=== PATIENT | female | born 1975 | race Caucasian/White ===

== ENCOUNTER 2020-04-25 17:09 | Outpatient (CLI) | payer OTHER, SELFPAY ==
--- NOTE | ~2020-04-25 | MM_ITS ---
EXAMINATION: MM screening demetri BI w je HISTORY: Screening mammogram TECHNIQUE: Craniocaudal and mediolateral oblique 3-D tomosynthesis images were obtained and synthetic 2-D images were generated. CAD analysis was submitted and interpreted. COMPARISON: 12/05/2017 bilateral digital screening mammogram BREAST PARENCHYMAL COMPOSITION: There are scattered areas of fibroglandular density. FINDINGS: There is no evidence of suspicious mass, calcification, or architectural distortion to sugg est malignancy in either breast. There has been no suspicious interval change. IMPRESSION: 1. No mammographic evidence of malignancy. 2. Recommend routine screening mammography in one year. BI-RADS Category 1: Negative Reviewed, dictated and finalized at location A.
== END 2020-04-25 17:10 | disposition home or self-care (01) ==
LOC: ANHIMG 17:13
PROVIDERS: Visit Provider Obstetrics & Gynecology
DX: Z12.31 Encounter for screening mammogram for malignant neoplasm of breast (principal)
CPT/HCPCS: 77063; 77067

== ENCOUNTER 2020-06-08 10:52 | Outpatient (CLI) | payer OTHER, SELFPAY ==
--- NOTE | ~2020-06-08 | XR_ITS ---
EXAMINATION: XR cervical spine 4-5V DATE: 06/08/2020 11:26 INDICATION: Neck pain. TECHNIQUE: 4 views of cervical spine were obtained. COMPARISON: None. FINDINGS: There is 6 degrees levocurvature of cervical spine. Vertebral body heights and intervertebr al disc heights are normal. The facet joints are unremarkable. No central canal stenosis or preverteb ral soft tissue swelling. IMPRESSION: 1. Cervical levocurvature. Reviewed, dictated and finalized at location A. IMPRESSION: 1. Cervical levocurvature.
--- NOTE | ~2020-06-08 | XR_ITS ---
EXAMINATION: XR lumbar spine 2-3V DATE: 06/08/2020 11:26 INDICATION: Low back pain. TECHNIQUE: 3 views of lumbar spine were obtained. COMPARISON: None. FINDINGS: There is 3 degrees dextrocurvature of lumbar spine. Vertebral body heights and intervertebr al disc heights are normal. There are endplate osteophytes at L1-L2 and L2-L3. The facet joints are u nremarkable. IMPRESSION: 1. Mild lumbar spondylosis. Reviewed, dictated and finalized at location A. IMPRESSION: 1. Mild lumbar spondylosis.
--- NOTE | ~2020-06-08 | XR_ITS ---
EXAMINATION: XR thoracic spine 3V DATE: 06/08/2020 11:26 INDICATION: Thoracic back pain. TECHNIQUE: 3 views of thoracic spine were obtained. COMPARISON: Chest 2 views 05/06/2019 FINDINGS: There is 4 degrees dextrocurvature of thoracic spine. Vertebral body heights are normal. Th ere are endplate osteophytes at most levels. There is mildly decreased disc height at multiple levels in mid thoracic spine. IMPRESSION: 1. Mild thoracic spondylosis. Reviewed, dictated and finalized at location A.
== END 2020-06-08 10:53 | disposition home or self-care (01) ==
PROVIDERS: PCP Physician Assistant; Visit Provider Physician Assistant
DX: M54.2 Cervicalgia (principal); M47.894 Other spondylosis, thoracic region; M47.896 Other spondylosis, lumbar region
CPT/HCPCS: 72050; 72072; 72100

== ENCOUNTER 2020-07-20 10:11 | Outpatient (CLI) | payer OTHER, SELFPAY ==
--- NOTE | ~2020-07-20 | US_ITS ---
EXAMINATION: US soft tissue head and neck DATE: 07/20/2020 10:51 INDICATION: Submandibular lymphadenopathy. TECHNIQUE: Multiple grayscale and Doppler ultrasound images of the neck were obtained. COMPARISON: None FINDINGS: There is no abnormal mass or lymphadenopathy in the patient's areas of concern. The submand ibular glands are normal. Right thyroid lobe is absent. In the left thyroid lobe, there is a 6 mm abiola id, isoechoic, [id number] nodule with ill-defined margin without echogenic foci (TI-RADS TR3), l ikely not clinically significant and needing no follow-up. IMPRESSION: 1. No lymphadenopathy. Reviewed, dictated and finalized at location B. RMINATOR TERMITE IMPRESSION: 1. No lymphadenopathy.
== END 2020-07-20 10:12 | disposition home or self-care (01) ==
PROVIDERS: PCP Physician Assistant; Visit Provider Physician Assistant
DX: R59.0 Localized enlarged lymph nodes (principal)
CPT/HCPCS: 76536

== ENCOUNTER 2021-06-13 17:39 | Emergency (ER) | payer OTHER, SELFPAY ==
[2021-06-13 17:47] VITALS: BP 111/68; PULSE 68; RESP 16; TEMP 36; O2SAT 98
--- NOTE | 2021-06-13 17:49 | ED.LOWEXIN ---
HPI - Extremity Injury (Lower) General Chief Complaint: Extremity Injury, Lower Stated Complaint: right foot injury Source: patient and RN notes reviewed Mode of arrival: ambulatory Limitations: no limitations History of Present Illness HPI Narrative: Tana 45-year-old female patient ambulated into the [facility]. Patient states she stepped on a rajan tack on 06/11/2021. Patient states that the tach entered below her third and fourth toe on her right foot. Patient states increased right redness swelling for the last day. Patient states she is been soaking it in Epson salts and putting Neosporin on it at home. Related Data Home Medications Medication Instructions Recorded Confirmed albuterol sulfate 2 inh INHALATION DIRECTED 06/13/21 06/13/21 budesonide-formoterol [Symbicort] 1 inh INHALATION DAILY 06/13/21 06/13/21 cetirizine 10 mg PO DAILY 06/13/21 06/13/21 duloxetine 60 mg PO DAILY 06/13/21 06/13/21 fluticasone propionate 50 mcg INTRANASAL DIRECTED 06/13/21 06/13/21 hydroxychloroquine 200 mg PO DAILY 06/13/21 06/13/21 Allergies Allergy/AdvReac Type Severity Reaction Status Date / Time No Known Allergies Allergy Unverified 06/13/21 17:44 Review of Systems Review of Systems: CONSTITUTIONAL: Denies body aches, fever, chills, or sweats. EYES: Denies visual changes, redness, or discharge. ENT: Denies rhinorrhea, congestion, sore throat, or otalgia. CARDIOVASCULAR: Denies chest pain, palpitations, or edema. RESPIRATORY: Denies cough or dyspnea. GASTROINTESTINAL: Denies abdominal pain, nausea, vomiting, or diarrhea. GENITOURINARY: Denies dysuria or hematuria. SKIN: Denies rash, itching, + right foot wound MUSCULOSKELETAL: Denies back pain, joint pain, or myalgia. NEUROLOGIC: Denies headache, numbness, tingling, or weakness. PSYCH: Denies depression or anxiety. All systems reviewed & are unremarkable except as noted in HPI and below [facility] Comments At time of signature, I have reviewed and agree with nursing past medical, surgical, social and family history unless otherwise noted. Please see nursing chart for further information. There is no relevant family history pertinent to the presenting complaint Exam Narrative: GENERAL: Well-appearing, well-nourished, and in no acute distress. HEAD: Normocephalic, atraumatic. EYES: EOMI. No redness or drainage. Conjunctivae normal. ENT: Mucous membranes pink and moist. Nares clear. No rhinorrhea. NECK: Normal AROM. Supple. CHEST: No respiratory distress. MUSCULOSKELETAL: No bony tenderness. EXTREMITIES: Normal range of motion. No edema. right foot posterior below 3 and 4th toe erythemic,moderate edema,pinpoint entry noted. neurovascular exam intact. distal movement and sensation intact. SKIN: Warm, dry, no rash. Capillary refill normal. Normal skin turgor. NEURO: No focal deficits. Alert and oriented x3. Gait steady. PSYCH: Normal affect. No signs of depression or anxiety. Course Vital Signs Vital signs: Vital Signs Temperature 36.0 C L 06/13/21 17:47 Pulse Rate 68 06/13/21 17:47 Respiratory Rate 16 06/13/21 17:47 Blood Pressure 111/68 06/13/21 17:47 Pulse Oximetry 98 06/13/21 17:47 Temperature 36.0 C L 06/13/21 17:47 Pulse Rate 68 06/13/21 17:47 Respiratory Rate 16 06/13/21 17:47 Blood Pressure 111/68 06/13/21 17:47 Pulse Oximetry 98 06/13/21 17:47 Reviewed MDM - Extremity Injury (Lower) MDM Narrative Medical decision making narrative: Patient has a puncture wound to the right foot. Patient has cellulitis surrounding the area. Patient was put on Bactrim and ibuprofen. Patient was instructed to follow-up in 3 to 4 days with her primary care physician patient was instructed to go to the ER immediately for increased redness, swelling, or red streaking. Patient instructed to keep the area clean and dry elevate at rest patient was instructed to clean the area twice daily with mild soap and water Diff
[2021-06-13] MEDS: TETANUS,DIPHTHERIA,AC PERTUSSIS ADULT (0.5 ML) BOOSTRIX IM (17:58)
== END 2021-06-13 18:15 | disposition home or self-care (01) ==
PROVIDERS: Emergency Provider Nurse Practitioner Family; PCP Physician Assistant
DX: L03.115 Cellulitis of right lower limb (principal); Z23 Encounter for immunization; J44.9 Chronic obstructive pulmonary disease, unspecified; K21.9 Gastro-esophageal reflux disease without esophagitis; M19.90 Unspecified osteoarthritis, unspecified site; M79.7 Fibromyalgia; M06.9 Rheumatoid arthritis, unspecified
CPT/HCPCS: 90471; 90715; 99213; G0463

== ENCOUNTER 2021-07-19 07:23 | Outpatient (CLI) | payer OTHER, SELFPAY ==
--- NOTE | 2021-07-19 | ECHO_ITS ---
Patient Info Name: Tana Sanchez Age: 45 years : 1975 Gender: Female Ht: 69 in Wt: 215 lbs BSA: 2.21 m2 HR: 53 bpm BP: 106 / 70 mmHg Heart Rhythm: Sinus Rhythm Exam Date: 07/19/2021 8:13 AM Exam Location: [facility] Patient Status: Outpatient Admit Date: 07/19/2021 Staff Ordering Physician: Tong, Nia GONZALES Cradle Slide Maker: Sara Keller RDCS Attending Provider: Tong, Nia GONZALES Referring Physician: Tong CONLEY; Exam Type: CA echo doppler color flow Study Info Indications R06.00 - Dyspnea, unspecified Complete two-dimensional, color flow and Doppler transthoracic echocardiogram is performed. Summary 1. Complete two-dimensional, color flow and Doppler transthoracic echocardiogram is performed. 2. Left ventricular chamber dimension is normal. 3. Left ventricular systolic function is normal, estimated at 55-60%. 4. The left ventricular diastolic function is normal. 5. E/e' 9 is minimally elevated. 6. There is trace aortic valve regurgitation. 7. There is trace mitral valve regurgitation. Left Ventricle E/e' 9 is minimally elevated. Left ventricular chamber dimension is normal. Left ventricular systolic function is normal, estimated at 55-60%. The left ventricular diastolic function is normal. Right Ventricle Right ventricular systolic function is mulu and with normal TAPSE 2.1 cml. Right ventricular chamber dimension is normal. Left Atria Left atrial chamber dimension is normal. Right Atria Right atrial chamber dimension is normal. Aortic Valve The aortic valve is trileaflet. There is no aortic valve stenosis. There is trace aortic valve regurgitation. Pulmonic Valve There is no pulmonic regurgitation. Mitral Valve There is no mitral valve stenosis. There is trace mitral valve regurgitation. Tricuspid Valve There is no tricuspid valve regurgitation. Pericardium/Pleural There is no pericardial effusion. Inferior Vena Cava Normal inferior vena cava with >50% collapse upon inspiration consistent with normal right atrial pressure, 5 mmHg. Aorta The aortic root size at the sinus of Valsalva is normal. Left Ventricular Outflow Tract Name Value Normal LVOT 2D LVOT Diameter 2.2 cm LVOT Doppler LVOT Peak Gradient 2 mmHg LVOT Mean Gradient 1 mmHg LVOT VTI 17 cm LVOT VTI/AV VTI Ratio 0.6 LVOT Stroke Volume 68 ml LVOT CO 2.7 l/min LVOT CI 1.2 l/min/m2 Pulmonic Valve Name Value Normal RVOT Doppler RVOT Peak Gradient 1 mmHg PV Doppler PV Peak Gradient 2 mmHg
--- NOTE | 2021-07-19 12:04 | WPDPFTINT ---
PFT Procedure Performed PFT Procedure Performed Spirometry with Pre/Post Bronchodilator Plethysmography (Lung Vol) Diffusing Cap (DLCO) Flow Vol Loop PFT Interpretation Lung volumes were measured with the body plethysmography method. Lung volumes are unremarkable. Spirometry showed normal expiratory flow rates and a mild reduction in the FEV1 to FVC ratio at 64%. No post bronchodilator study was carried out. Lung diffusion capacity is within the normal range. The flow volume loop is suggestive of possible suboptimal effort. It is unclear whether the diminished FEV1 to FVC ratio in the face of normal expiratory flow rates is related to suboptimal effort or to the disproportionately greater FVC in relation to FEV1. Consider repeating the study with post- bronchodilator measurements if underlying obstructive airway disease is suspected. Impression: Lung volumes and lung diffusion capacity within normal range. Likely normal spirometry as well.
== END 2021-07-19 07:24 | disposition home or self-care (01) ==
PROVIDERS: PCP Physician Assistant; Visit Provider Physician Assistant
DX: J44.9 Chronic obstructive pulmonary disease, unspecified (principal); R06.00 Dyspnea, unspecified
CPT/HCPCS: 93306; 94375; 94726; 94729

== ENCOUNTER 2021-10-25 08:34 | Outpatient (CLI) | payer OTHER, SELFPAY ==
--- NOTE | 2021-10-25 11:00 | NEURO_ITS ---
Impression: # Complains of numbness and weakness. # Right ulnar neuropathy across the elbow. # No Carpal Tunnel Syndrome. # Normal needle/EMG exam. # Clinical correlation recommended. Nerve Conduction Studies Anti Sensory Summary Table Stim Site NR Peak (ms) P-T Amp (?V) Site1 Site2 Delta-P (ms) Dist (cm) Андрей (m/s) Left Median Anti Sensory (2-3nd Digit) Wrist 2.8 67.7 Wrist 2-3nd Digit 2.8 14.0 50 Wrist 2.8 88.2 Wrist 2-3nd Digit 2.8 14.0 50 Right Median Anti Sensory (2-3nd Digit) Wrist 3.1 45.6 Wrist 2-3nd Digit 3.1 14.0 45 Wrist 3.0 62.7 Wrist 2-3nd Digit 3.1 14.0 45 Left Radial Anti Sensory (Base 1st Digit) Wrist 2.1 26.4 Wrist Base 1st Digit 2.1 0.0 Right Radial Anti Sensory (Base 1st Digit) Wrist 2.6 15.9 Wrist Base 1st Digit 2.6 0.0 Left Ulnar Anti Sensory (5th Digit) Wrist 2.5 65.6 Wrist 5th Digit 2.5 14.0 56 Right Ulnar Anti Sensory (5th Digit) Wrist 2.4 35.3 Wrist 5th Digit 2.4 14.0 58 Motor Summary Table Stim Site NR Onset (ms) O-P Amp (mV) Site1 Site2 Delta-0 (ms) Dist (cm) Андрей (m/s) Left Median Motor (Abd Poll Brev) Wrist 3.2 2.0 Elbow Wrist 4.3 26.0 60 Elbow 7.5 3.3 Right Median Motor (Abd Poll Brev) Wrist 3.3 5.5 Elbow Wrist 4.6 27.0 59 Elbow 7.9 5.4 Left Ulnar Motor (Abd Dig Minimi) Wrist 2.7 7.5 A Elbow Wrist 5.0 29.0 58 A Elbow 7.7 6.4 Right Ulnar Motor (Abd Dig Minimi) Wrist 2.4 6.3 A Elbow Wrist 5.4 28.0 52 A Elbow 7.8 5.2 B Elbow Wrist 3.3 20.0 61 B Elbow 5.7 4.5 F Wave Studies NR F-Lat (ms) L-R F-Lat (ms) Left Median (Mrkrs) (Abd Poll Brev) 28.07 0.53 Right Median (Mrkrs) (Abd Poll Brev) 28.60 0.53 Left Ulnar (Mrkrs) (Abd Dig Min) 28.62 0.38 Right Ulnar (Mrkrs) (Abd Dig Min) 28.25 0.38 EMG Side Muscle Nerve Root Ins Act Fibs Amp Dur Recrt Comment Right 1stDorInt Ulnar C8-T1 Nml Nml Nml Nml Nml Right Ext Indicis Radial (Post Int) C7-8 Nml Nml Nml Nml Nml Right Ext Digitorum Radial (Post Int) C7-8 Nml Nml Nml Nml Nml Right BrachioRad Radial C5-6 Nml Nml Nml Nml Nml Right PronatorTeres Median C6-7 Nml Nml Nml Nml Nml Right Abd Poll Brev Median C8-T1 Nml Nml Nml Nml Nml Left 1stDorInt Ulnar C8-T1 Nml Nml Nml Nml Nml Left Ext Indicis Radial (Post Int) C7-8 Nml Nml Nml Nml Nml Left Ext Digitorum Radial (Post Int) C7-8 Nml Nml Nml Nml Nml Left BrachioRad Radial C5-6 Nml Nml Nml Nml Nml Left PronatorTeres Median C6-7 Nml Nml Nml Nml Nml Left Abd Poll Brev Median C8-T1 Nml Nml Nml Nml Nml Right ABD Dig Min Ulnar C8-T1 Nml Nml Nml Nml Nml Right Abd Poll Long Radial (Post Int) C7-8 Nml Nml Nml Nml Nml Left ABD Dig Min Ulnar C8-T1 Nml Nml Nml Nml Nml Left Abd Poll Long Radial (Post Int) C7-8 Nml Nml Nml Nml Nml MTDD
== END 2021-10-25 08:35 | disposition home or self-care (01) ==
LOC: ANHNEURO 08:34
PROVIDERS: PCP Physician Assistant; Visit Provider Physician Assistant
DX: R29.898 Other symptoms and signs involving the musculoskeletal system (principal); G56.21 Lesion of ulnar nerve, right upper limb
CPT/HCPCS: 95886; 95911

== ENCOUNTER 2021-11-19 14:02 | Outpatient (CLI) | payer OTHER, SELFPAY ==
--- NOTE | ~2021-11-19 | XR_ITS ---
EXAMINATION: XR mandible min 4V INDICATION: Right jaw pain TECHNIQUE: Four views of the mandible are obtained. COMPARISON: 05/15/2004 FINDINGS: Bone alignment is normal. There is no fracture. The paranasal sinuses appear well-aerated. The soft tissues are unremarkable. IMPRESSION: 1. No acute osseous abnormality of the mandible identified. If there is high clinical suspicion for m andibular abnormality, facial bone CT would be recommended. Reviewed, dictated and finalized at location A. IMPRESSION: 1. No acute osseous abnormality of the mandible identified. If there is high cl inical suspicion for mandibular abnormality, facial bone CT would be recommende dAmauri
== END 2021-11-19 14:03 | disposition home or self-care (01) ==
PROVIDERS: PCP Physician Assistant; Visit Provider Physician Assistant
DX: R68.84 Jaw pain (principal); E04.1 Nontoxic single thyroid nodule
CPT/HCPCS: 70110

== ENCOUNTER 2021-11-22 15:53 | Outpatient (CLI) | payer OTHER, SELFPAY ==
--- NOTE | ~2021-11-22 | US_ITS ---
EXAMINATION: US thyroid EXAM DATE: 11/22/2021 17:23 INDICATION: Single known toxic thyroid nodule. TECHNIQUE: Multiple grayscale and Doppler images of the thyroid were obtained (by a technologist who performed the scan) and subsequently reviewed. Individual nodules and recommendations may be reporte d in accordance with TI-RADS system as designated by the 2017 ACR White Paper TI-RADS committee. Comp micky is made to prior examination from 07/20/2020. FINDINGS: Right thyroid lobe appears to be atrophic measuring 1.0 x 0.4 x 1.0 cm, with a 3 mm cyst in side. The left thyroid lobe nodule measures 4.8 x 1.7 x 2.2 cm. The left thyroid lobe nodule has relatively ho mogeneous thyroid echogenicity attenuation, measuring 4.8 x 1.7 x 2.2 cm. Within the left thyroid lob e medially there is a nodule measuring 9 x 7 x 7 mm, solid (2 points), isoechoic (1 point), wider quintin n tall, smooth well defined margin, without echogenic foci, category TR3 for this nodule. IMPRESSION: Small left thyroid lobe nodule, unchanged and not likely clinically significant. Return t o clinical follow-up and if additional palpable abnormality develops a repeat ultrasound can be obtai brittani. Reviewed, dictated and finalized at location D. IMPRESSION: Small left thyroid lobe nodule, unchanged and not likely clinically significant. Return to clinical follow-up and if additional palpable abnormali ty develops a repeat ultrasound can be obtained.
== END 2021-11-22 15:54 | disposition home or self-care (01) ==
LOC: ANHIMG 15:53
PROVIDERS: PCP Physician Assistant; Visit Provider Physician Assistant
DX: R68.84 Jaw pain (principal); E04.1 Nontoxic single thyroid nodule
CPT/HCPCS: 76536

== ENCOUNTER 2022-01-15 10:15 | Outpatient (RCR) | payer OTHER, SELFPAY ==
--- NOTE | 2021-11-27 15:29 | PTOPEVAL ---
PHYSICAL THERAPY INITIAL EVALUATION. Thank you for referring Tana Sanchez to [facility].? The patient is scheduled to be seen for therapy? 1-2 x/week for 4 weeks. Please review, sign, date and return this plan of care BECKY. I agree with and certify that the following plan of care is medically necessary. Referring Physician Date Attending Provider: Nai Fortune, PA *PT Outpatient Evaluation Start: 11/27/21 Evaluation Information Diagnosis Neck pain Onset ~2 weeks Subjective Information Pt states she has RA, Query Text:As Reported By Patient/ fibromyalgia, and Lupus. She Family states she has tightness and tenderness on the R side of her neck. She reports sharp pain in her neck, and tightness in the shoulder. She declines any symptoms on the L. Pain Assessment Self Report Pain Assessment Right Neck Reported Pain Level 4 Pain Description Sharp,Tightness Pain Radiation Right Shoulder Lowest Pain Intensity 4 Greatest Pain Intensity 10 Pain Aggravating Factors Sitting,Weight Bearing/ Standing Cervical ROM Cervical Flexion (0-60) 32 active Cervical Extension (0-70) 34 active Cervical Lateral Flexion Right (0-50) 40 active Cervical Lateral Flexion Right (0-50) 45 passive Cervical Lateral Flexion Left (0-50) 32 active Cervical Lateral Flexion Left (0-50) 45 passive Cervical Rotation Right (0-90) 64 active Cervical Rotation Right (0-90) 70 passive Cervical Rotation Left (0-90) 52 active Cervical Rotation Left (0-90) 60 passive Cervical ROM 75% of Normal Upper Extremity Range of Motion General Upper Extremity Range of Motion Gross Upper Extremity Range of Motion Equally decreased bilaterally Comments - still functional Upper Extremity Muscle Strength Testing Gross Upper Extremity Strength Comments B UE grossly 4/5 Muscle Length Testing Upper Trapezius Muscle Length (R) Mild Tightness,(L) Mild Tightness Levaetor Scapulae Muscle Length (R) Mild Tightness,(L) Mild Tightness Pectoralis Minor Muscle Length (R) Mild Tightness,(L) Mild Tightness Posture Head/C-Spine Posture Flexed,Forward Head Thoracic Spine Posture Flattened Lumbar Spine Posture Increased Lordosis Shoulder Posture Neutral Scapula Posture (L) Protracted,(R) Protracted Palpation Assessment Palpation mild tenderness reported throughout entire hands on
--- NOTE | 2021-12-04 11:51 | PCPTNOTE ---
Patient called and canceled this date due to feeling sick.
--- NOTE | 2021-12-06 10:19 | PCPTNOTE ---
Patient called and left voicemail stating she was still sick and would not be able to make her appointment for 12/06/21.
--- NOTE | 2021-12-13 13:51 | PCPTNOTE ---
The patient treatment was not able to be completed on 12/13/21 due to patient no showing to appointment. Called and spoke with patient who states she has sick kids and was unable to make it today. Informed patient of next upcoming appointment on 12/18/21 at 12:30. Will plan to continue treatment per plan of care.
--- NOTE | 2021-12-25 11:33 | PTOPEVAL ---
PHYSICAL THERAPY PROGRESS REPORT. Thank you for referring Tana Sanchez to [facility].? The patient is scheduled to be seen for therapy?2 x/week for 4 weeks. Please review, sign, date and return this plan of care BECKY. I agree with and certify that the following plan of care is medically necessary. Referring Physician Date Attending Provider: Nia Fortune, PA Musculoskeletal History Hx Arthritis Yes Hx Fibromyalgia Yes Hx Rheumatoid Arthritis Yes Evaluation Information Diagnosis Neck pain Onset ~2 weeks Subjective Information Pt states she is feeling about Query Text:As Reported By Patient/ the same as when she started. Family She states she has been really sore and had a headache after the last couple of visits. Pt states she is having a really bad day today and everything hurts. Pain Assessment Self Report Pain Assessment Right Neck Reported Pain Level 10 Greatest Pain Intensity 10 Pain Behaviors Anxious,Restless,Teary Eyed/ Cervical and Lumbar ROM Cervical ROM Cervical Flexion (0-60) 35 active Cervical Extension (0-70) 42 active Cervical Lateral Flexion Right (0-50) 30 active Cervical Lateral Flexion Right (0-50) 45 passive Cervical Lateral Flexion Left (0-50) 30 active Cervical Lateral Flexion Left (0-50) 45 passive Cervical Rotation Right (0-90) 45 active Cervical Rotation Right (0-90) 70 passive Cervical Rotation Left (0-90) 50 active Cervical Rotation Left (0-90) 60 passive Posture Head/C-Spine Posture Flexed,Forward Head Thoracic Spine Posture Flattened Lumbar Spine Posture Increased Lordosis Shoulder Posture Neutral Scapula Posture (L) Protracted,(R) Protracted Palpation Assessment Palpation mild tenderness reported throughout entire R shoulder region PT Clinical Summary Tana presents to therapy today for her progress report following 3 visits of therapy. She reports today that she is having a bad flair up with her fibromyalgia. Today she demonstrates decreased cervical ROM compared to her initial visit. She reports a current headache and is fidgeting due to the pain. Continuatio
--- NOTE | 2022-01-08 09:30 | PCPTNOTE ---
Patient called, left voicemail cancelling scheduled appointment this date due to due to oversleeping and woke up at appointment time.
--- NOTE | 2022-01-10 09:59 | PCPTNOTE ---
Patient called & cancelled scheduled appointment this date due to having to be with her daughter.
--- NOTE | 2022-01-17 09:35 | PCPTNOTE ---
Patient called & cancelled scheduled appointment this date due to being sick and having an asthma attack. Will continue per POC.
--- NOTE | 2022-01-22 10:22 | PCPTNOTE ---
Patient called & cancelled scheduled appointment this date due to being unable to make it in.
--- NOTE | 2022-01-24 10:25 | PCPTNOTE ---
Patient did not show up for scheduled appointment this date.
--- NOTE | 2022-01-24 10:25 | PCPTNOTE ---
Addendum entered by Jsesica Aquino, PT, DPT 01/24/22 10:27: Called and left voicemail informing patient that she will be discharged at this time. Original Note: Attending Provider: Nia Fortune, JANET Patient:Tana Sanchez Date of :1975 Patient?s initial visit was on 11/27/2021 and she had a total of 7 visits. She has had 2 no call, no shows, and has cancelled 6 visits since her initial evaluation. Per the attendance policy given at the initial visits, she will be discharged from therapy services at this time. Thank you for referring this patient to [facility]. Please review, sign, date and return this discharge summary BECKY. I have been updated about the patient's current status and I agree with discharge from the above service at this time. Referring Physician Date
== END 2022-01-24 11:57 | disposition home or self-care (01) ==
LOC: ANHPT 10:15
PROVIDERS: PCP Physician Assistant; Referring Provider Physician Assistant; Visit Provider Physician Assistant
DX: M54.2 Cervicalgia (principal)
CPT/HCPCS: 97014; 97110; 97112; 97140; 97161; 97530; G0283

== ENCOUNTER 2022-05-29 10:51 | Outpatient (CLI) | payer OTHER, SELFPAY ==
--- NOTE | ~2022-05-29 | CT_ITS ---
EXAMINATION: CT soft tissue neck w con DATE: 05/29/2022 11:16 INDICATION: Neck mass. Dysphagia. TECHNIQUE: Computed tomography (CT) of the neck was performed with 75 mL Omnipaque-350 intravenous co ntrast. Automated exposure control and iterative reconstruction technique were employed. The dose-elen gth product was 620.97 mGy-cm. COMPARISON: Thyroid ultrasound 11/22/2021 FINDINGS: There is an 11 mm hyperdense mass in the base of tongue, likely a lingual thyroid. Right th yroid lobe is absent. There are no pathologically enlarged lymph nodes. The cervical carotid arteries are normal. There is mucosal thickening in the paranasal sinuses. The mastoid air cells are normal. There is kyphosis of cervical spine. IMPRESSION: 1. Lingual thyroid. Reviewed, dictated and finalized at location B. IMPRESSION: 1. Lingual thyroid.
[2022-05-29 11:37] LABS: Anion Gap 4 mmol/L (8-16); Blood Urea Nitrogen 6 mg/dL (7-17); Calcium 8.3 mg/dL (8.4-10.2); Carbon Dioxide 29 mmol/L (22-30); Chloride 102 mmol/L (98-107); Estimated Glomerular Filt Rate > 60; Glucose 85 mg/dL (65-110); Potassium 4.6 mmol/L (3.4-5.0); Sodium 135 mmol/L (137-145)
== END 2022-05-29 10:52 | disposition home or self-care (01) ==
PROVIDERS: PCP Physician Assistant; Visit Provider Otolaryngology
DX: R22.1 Localized swelling, mass and lump, neck (principal)
CPT/HCPCS: 36415; 70491; 80048; Q9967

== ENCOUNTER 2022-12-16 00:45 | Day surgery (SDC) | payer OTHER, SELFPAY ==
[2022-12-04 09:41] VITALS: BMI 34.9
--- NOTE | 2022-12-15 19:34 | PM.HPGS ---
History of Present Illness History of Present Illness Consent: Risks, benefits, and alternatives have been discussed and questions answered. Patient agrees to proceed with procedure. Chief complaint: neoplasm screening, dysphagia Narrative: Tana Sanchez is a 47 year old female with history of lupus and fibromyalgia is referred for evaluation of dysphagia. ? States dysphagia is not new it has been going on for years but is progressively get worse. She reports sensation of choking with swallowing often time producing a cough. There times and feels like she can not even swallow air forget the air to pass through her pharynx. She was born with asymmetric thyroid. She has seen an Ear Nose Throat physician regarding her issues. surprisingly, she had no difficulties drinking her prep last night for the colonoscopy. Her weight is stableReports sensation with food and water both. Reports sensation near the substernal notch. She denies any hx of food bolus or vomiting food back up. She reports long hx of nausea that is worse in the AM and intermittent reflux symptoms that she treats with OTC antacids as needed. She denies any abdominal or changes in bowel habits. She is a smoker. Never had scope. Family hx unknown-she is adopted. Previously evaluated by ENT with no etiology found. she is due for colon cancer screening. Review of Systems Review of Systems: All systems reviewed & are unremarkable except as noted in HPI and below PMFSH Past Medical History Medical History Dysphagia Fibromyalgia Lupus Post hysterectomy menopause Tobacco use Surgical History Surgical History S/P appy Social History Social History Smoking status: Current every day smoker Tobacco type: cigarettes Alcohol intake: never Substance use: current Substance use type: marijuana Other substance usage details: for sleep Living arrangements: with family Spiritual care concerns: No Meds Home Medications and Allergies Home Medications Medication Instructions Recorded Confirmed Type albuterol sulfate 90 mcg/actuation 2 inh inhalation DIRECTED 06/13/21 12/04/22 History aerosol inhaler budesonide-formoterol HFA 80 1 inh inhalation DAILY 06/13/21 12/04/22 History mcg-4.5 mcg/actuation aerosol inhaler (Symbicort) cetirizine 10 mg tablet 10 mg PO DAILY 06/13/21 12/04/22 History fluticasone propionate 50 50 mcg intranasal DIRECTED 06/13/21 12/04/22 History mcg/actuation nasal spray,suspension hydroxychloroquine 200 mg tablet 200 mg PO DAILY 06/13/21 12/04/22 History ibuprofen 800 mg tablet 800 mg PO TID PRN pain 10 days #30 06/13/21 12/04/22 Rx tabs cyclobenzaprine 10 mg tablet 7.5 mg PO TID 10/30/22 12/04/22 History gabapentin 300 mg capsule 300 mg PO DAILY 10/30/22 12/04/22 History cyclobenzaprine 7.5 mg tablet 7.5 mg PO DAILY 12/04/22 12/04/22 History ropinirole 0.5 mg tablet 0.5 mg PO DAILY 12/04/22 12/04/22 History Allergies Allergy/AdvReac Type Severity Reaction Status Date / Time No Known Allergies Allergy Verified 12/16/22 08:45 Exam Const: General: alert Orientation/consciousness: patient oriented x3 Resp: Auscultation: clear to auscultation bilaterally Cardio: Rhythm: regular rhythm GI: GI Palp: Yes Soft to palpation and No Tenderness to palpation present (GI) Neuro: General: patient oriented x3 Assessment and Plan Assessment and plan (1) Dysphagia: Code(s): R13.10 - Dysphagia, unspecified Status: Acute Assessment and Plan: EGD with possible biopsy or dilatation or cautery. (2) Colon cancer screening: Code(s): Z12.11 - Encounter for screening for malignant neoplasm of colon Status: Acute Assessment and Plan: Colonoscopy with possible biopsy or polypectomy or cautery or injection of substances.
[2022-12-16 08:46] VITALS: BP 113/72; PULSE 58; RESP 20; TEMP 35.6; O2SAT 99
[2022-12-16] MEDS: LACTATED RINGERS 1,000 ML 150 ML IV CONT (09:00)
--- NOTE | 2022-12-16 09:26 | P.PNAN_ITS ---
Anes - Initial Pre Proc Eval Procedure: Operation Date: 12/16/22 10:00 Proposed Procedures p Esophagogastroduodenoscopy & Screening Colonoscopy - Magdaleno Chavis MD Date/Time: 12/16/22 09:26 Surgeon: Magdaleno Chavis MD Pre Op Diagnosis: neoplasm screening, dysphagia Patient Data Age: 47 Gender: F Height: 1.7 m Weight: 101 kg Last Vital Signs Temp 96.1 F L 12/16/22 08:46 Pulse 58 L 12/16/22 08:46 Resp 20 12/16/22 08:46 BP 113/72 12/16/22 08:46 Pulse Ox 99 12/16/22 08:46 O2 Del Method Room Air 12/16/22 08:46 Allergies Allergy/AdvReac Type Severity Reaction Status Date / Time No Known Allergies Allergy Verified 12/16/22 08:45 Home Medications Medication Instructions Recorded Confirmed Type albuterol sulfate 90 mcg/actuation 2 inh inhalation DIRECTED 06/13/21 12/04/22 History aerosol inhaler budesonide-formoterol HFA 80 1 inh inhalation DAILY 06/13/21 12/04/22 History mcg-4.5 mcg/actuation aerosol inhaler (Symbicort) cetirizine 10 mg tablet 10 mg PO DAILY 06/13/21 12/04/22 History fluticasone propionate 50 50 mcg intranasal DIRECTED 06/13/21 12/04/22 History mcg/actuation nasal spray,suspension hydroxychloroquine 200 mg tablet 200 mg PO DAILY 06/13/21 12/04/22 History ibuprofen 800 mg tablet 800 mg PO TID PRN pain 10 days #30 06/13/21 12/04/22 Rx tabs cyclobenzaprine 10 mg tablet 7.5 mg PO TID 10/30/22 12/04/22 History gabapentin 300 mg capsule 300 mg PO DAILY 10/30/22 12/04/22 History cyclobenzaprine 7.5 mg tablet 7.5 mg PO DAILY 12/04/22 12/04/22 History ropinirole 0.5 mg tablet 0.5 mg PO DAILY 12/04/22 12/04/22 History Patient hx anesthesia problems: none Family hx anesthesia problems: none Results Review: All pre-operative results and documents have been reviewed as part of the pre- operative evaluation. [facility] Past Medical History Medical History Dysphagia Fibromyalgia Lupus Post hysterectomy menopause Tobacco use Surgical History Surgical History (Updated 10/30/22 @ 11:33 by Jason Martinez) S/P appy Social History Social History Smoking status: Current every day smoker Tobacco type: cigarettes Alcohol intake: never Substance use: current Substance use type: marijuana Other substance usage details: for sleep Living arrangements: with family Spiritual care concerns: No Anes - Eval Final PreProcedure Day of Procedure 12/16/22 09:26 Patient weight: obese Heart: regular rate and rhythm Lungs: clear to auscultation Airway: Mallampati scale class II Neurological: alert and oriented Last oral intake: >/= 8 hours ASA classification: III Emergent: no Anesthetic plan: proceed Anesthesia type and monitoring: general GIVS and standard monitoring Results Review: All pre-operative results and documents have been reviewed as part of the pre- operative evaluation. Informed Consent: The patient's anesthetic plan and its attendant risks and benefits were discussed with the patient/family/POA. Questions were solicited and answers provided to the satisfaction of the patient/family/POA.
--- NOTE | 2022-12-16 10:01 | SUR.OPER ---
EGD end 952 COLONOSCOPY START 1000
[2022-12-16 10:17] VITALS: BP 118/77; PULSE 58; RESP 25; O2SAT 98
[2022-12-16 10:27] VITALS: BP 139/79; PULSE 60; RESP 25; O2SAT 98
[2022-12-16 10:37] VITALS: BP 139/79; PULSE 52; RESP 25; O2SAT 98
--- NOTE | 2022-12-16 10:46 | SUR.PHASEII ---
Patient had some complaints of back pain and had become tearful. Patient was helped to the bathroom to try to relieve gas. She stated she did feel a bit better but her back still hurts. She does have chronic back pain and did not take her medication for her back this morning. All of this was relayed to Dr. Wiseman. Dr. Wiseman stated that we could offer her Ibuprofen for the ride home until she can get to her medications. Ibuprofen offered and patient was okay with that and stated she is continuing to feel better.
[2022-12-16] MEDS: IBUPROFEN 400 MG TABLET 800 MG PO (11:05)
== END 2022-12-16 11:12 | disposition home or self-care (01) ==
PROVIDERS: PCP Physician Assistant; Visit Provider Internal Medicine Gastroenterology
PROC: 0DJ08ZZ Inspection of Upper Intestinal Tract, Via Natural or Artificial Opening Endoscopic (ICD-10-PCS; CPT 43235; principal; 2022-12-16 10:00)
DX: Z12.11 Encounter for screening for malignant neoplasm of colon (principal); K64.8 Other hemorrhoids; K57.30 Diverticulosis of large intestine without perforation or abscess without bleeding; K21.00 Gastro-esophageal reflux disease with esophagitis, without bleeding; R13.10 Dysphagia, unspecified; M32.9 Systemic lupus erythematosus, unspecified; M79.7 Fibromyalgia; Z79.51 Long term (current) use of inhaled steroids; F17.210 Nicotine dependence, cigarettes, uncomplicated; F12.90 Cannabis use, unspecified, uncomplicated; E66.9 Obesity, unspecified; Z68.34 Body mass index [BMI] 34.0-34.9, adult
CPT/HCPCS: 45378; 43239; 87081; 88305; A9270; J2704; J7120

== ENCOUNTER 2023-05-31 14:45 | Emergency (ER) | payer OTHER, SELFPAY ==
--- NOTE | ~2023-05-31 | XR_ITS ---
EXAM: XR hand LT min 3V, XR hand RT min 3V DATE: 05/31/2023 15:39 HISTORY: left and right thumb area pain s/p fall 2 days ago . COMPARISON: None available. FINDINGS: Normal mineralization. No fracture or dislocation. No lytic or blastic lesion. Mild scatte red degenerative change. No erosion or periosteal change. Soft tissues within normal limits. IMPRESSION: No acute osseous finding in the right or left hands. Reviewed, dictated and finalized at location K. IMPRESSION: No acute osseous finding in the right or left hands.
[2023-05-31 14:50] VITALS: BP 103/58; PULSE 68; RESP 20; TEMP 36.9; O2SAT 100
--- NOTE | 2023-05-31 15:04 | ED.BACK ---
HPI - Back Pain/Injury General Chief Complaint: Back Pain/Injury Stated Complaint: Back Pain Time Seen by Provider: 05/31/23 15:08 Source: patient and RN notes reviewed Mode of arrival: ambulatory Limitations: no limitations History of Present Illness HPI Narrative: 47-year-old female presents with concern for pain after a fall. She reports she fell down the steps 3 days ago and landed on her backside and caught herself with both hands. She reports pain in bilateral hands and lower back pain. She reports she can find a position of comfort worse she does not have back pain but moving, bending causes back pain. She reports she took Advil without relief MD elicited complaint: back pain Related Data Home Medications Medication Instructions Recorded Confirmed albuterol sulfate 90 mcg/actuation 2 inh inhalation DIRECTED 06/13/21 05/31/23 aerosol inhaler budesonide-formoterol HFA 80 1 inh inhalation DAILY 06/13/21 05/31/23 mcg-4.5 mcg/actuation aerosol inhaler (Symbicort) cetirizine 10 mg tablet 10 mg PO DAILY 06/13/21 05/31/23 fluticasone propionate 50 50 mcg intranasal DIRECTED 06/13/21 05/31/23 mcg/actuation nasal spray,suspension hydroxychloroquine 200 mg tablet 200 mg PO DAILY 06/13/21 05/31/23 gabapentin 300 mg capsule 300 mg PO DAILY 10/30/22 05/31/23 ropinirole 0.5 mg tablet 0.5 mg PO DAILY 12/04/22 05/31/23 Allergies Allergy/AdvReac Type Severity Reaction Status Date / Time No Known Allergies Allergy Verified 05/31/23 14:51 Review of Systems Review of Systems: CONSTITUTIONAL: Denies malaise, chills, sweats, or fever. CARDIOVASCULAR: Denies chest pain, palpitations, or edema. RESPIRATORY: Denies cough or dyspnea. GASTROINTESTINAL: Denies abdominal pain, nausea, vomiting, diarrhea, loss of bowel function GENITOURINARY: Denies dysuria, hematuria, frequency, loss of bladder function. SKIN: Denies rash or itching. MUSCULOSKELETAL: Reports low back pain. Reports bilateral hand pain NEUROLOGIC: Denies numbness, weakness, or headache. All systems reviewed & are unremarkable except as noted in HPI and below PMFSH Past Medical History Medical History GEOVANNY positive Bilateral hand pain Dysphagia Fibromyalgia Lupus Polyarthralgia Post hysterectomy menopause Tobacco use Surgical History Surgical History S/P appy Social History Social History Smoking status: Current every day smoker Tobacco type: cigarettes Alcohol intake: never Substance use: current Substance use type: marijuana Other substance usage details: for sleep Living arrangements: with family Spiritual care concerns: No Comments At time of signature, agree with nursing past medical, surgical, social and family history. There is no relevant family history pertinent to the presenting complaint Exam Narrative: GENERAL: Well-appearing, well-nourished, and in no acute distress. HEAD: Normocephalic, atraumatic. EYES: PERRLA and EOMI. NECK: Supple. No lymphadenopathy. CHEST: Clear to auscultation. No respiratory distress. HEART: Regular rate and rhythm. Distal pulses palpable and equal, cap refill <3 seconds ABDOMEN: Soft, nontender, nondistended, normal active bowel sounds, no palpable or pulsatile masses. No CVA tenderness MUSCULOSKELETAL: Normal range of motion and strength in all extremities; 5/5 strength with hip flexion and extension, dorsiflexion and extension, knee flexion and extension, plantar flexion and extension. Normal sensation in dermatomal distributions with sensitivity to light touch and pain. No midline back tenderness to palpation. No paraspinal tenderness. Transfers from lying to sitting to standing. Bilateral hand hand and digits of hand have gross normal strength and sensation. Range of motion grossly normal. No clubbing, cyanosis, or edema noted. Bilateral tenderness below the 1st digit
== END 2023-05-31 16:22 | disposition home or self-care (01) ==
PROVIDERS: Emergency Provider Nurse Practitioner; PCP Physician Assistant
DX: S63.92XA Sprain of unspecified part of left wrist and hand, initial encounter (principal); S63.91XA Sprain of unspecified part of right wrist and hand, initial encounter; W10.9XXA Fall (on) (from) unspecified stairs and steps, initial encounter; M54.50 Low back pain, unspecified; F17.210 Nicotine dependence, cigarettes, uncomplicated; F12.90 Cannabis use, unspecified, uncomplicated; M79.7 Fibromyalgia
CPT/HCPCS: 73130; 99214; G0463

== ENCOUNTER 2023-06-06 15:37 | Outpatient (CLI) | payer OTHER, SELFPAY ==
--- NOTE | ~2023-06-06 | XR_ITS ---
EXAMINATION: XR hand BI arthritis min 3V DATE: 06/06/2023 16:10 INDICATION: Bilateral hand pain TECHNIQUE: Posteroanterior, lateral, and oblique views of the left and of the right hands as well as a ballcatchers view of both hands were obtained. COMPARISON: 05/31/2023 FINDINGS: No fracture, dislocation, or subluxation. The bones, soft tissues, and joint spaces are normal. No er osions are identified. IMPRESSION: 1. Unremarkable radiographs. Reviewed, dictated and finalized at location F.
--- NOTE | ~2023-06-06 | XR_ITS ---
EXAMINATION: XR foot RT standing 2V INDICATION: Right foot pain TECHNIQUE: Two views of the right foot are obtained. COMPARISON: None available FINDINGS: There are small erosions in the medial base of the first proximal phalanx and in the medial head of the first metatarsal. Mild hallux valgus is noted. There is no fracture. There is mild soft tissue swelling near the first metatarsophalangeal joint. A posterior calcaneal enthesophyte is noted . IMPRESSION: 1. Erosions in the medial aspect of the first metatarsophalangeal joint which could reflect gout vers us arthritis. Reviewed, dictated and finalized at location F. IMPRESSION: 1. Erosions in the medial aspect of the first metatarsophalangeal joint which c ould reflect gout versus arthritis.
--- NOTE | ~2023-06-06 | XR_ITS ---
EXAMINATION: XR lumbar spine min 4V DATE: 06/06/2023 16:10 INDICATION: Back pain TECHNIQUE: Anteroposterior, lateral, and bilateral oblique views of the lumbar spine, and cone-down l ateral view of the lumbosacral junction were obtained. COMPARISON: None. FINDINGS: Bone alignment is normal. There is no fracture. The vertebral body heights and intervertebr al disc spaces are maintained. Small degenerative osteophytes project from the anterior endplates of multiple vertebral bodies. There is multilevel mild facet joint osteoarthritis. IMPRESSION: 1. Mild lumbar spondylosis without acute findings. Reviewed, dictated and finalized at location F.
--- NOTE | ~2023-06-06 | XR_ITS ---
EXAMINATION: XR knee LT 3V DATE: 06/06/2023 16:10 INDICATION: Left knee pain TECHNIQUE: Three views of the left knee were obtained. COMPARISON: None. FINDINGS: Alignment is normal. No fracture or osteochondral lesion. Joint spaces are normal with no e rosions. No joint effusion/synovitis. Soft tissues are unremarkable. Mild fragmentation seen anteri forest in the medial tibial tubercle could reflect prior injury. IMPRESSION: 1. No acute osseous abnormality. Reviewed, dictated and finalized at location F.
--- NOTE | ~2023-06-06 | XR_ITS ---
EXAMINATION: XR foot LT standing 2V INDICATION: Left foot pain TECHNIQUE: Two views of the left foot are obtained. COMPARISON: None available FINDINGS: There are small erosions in the medial base of the first proximal phalanx and in the medial head of the first metatarsal. Mild hallux valgus is noted. There is no fracture. There is mild soft tissue swelling near the first metatarsophalangeal joint. A posterior calcaneal enthesophyte is noted . IMPRESSION: 1. Erosions in the medial aspect of the first metatarsophalangeal joint which could reflect gout vers us arthritis. Reviewed, dictated and finalized at location F. IMPRESSION: 1. Erosions in the medial aspect of the first metatarsophalangeal joint which c ould reflect gout versus arthritis.
--- NOTE | ~2023-06-06 | XR_ITS ---
EXAMINATION: XR knee RT 3V DATE: 06/06/2023 16:10 INDICATION: Right knee pain TECHNIQUE: Three views of the right knee were obtained. COMPARISON: None. FINDINGS: Alignment is normal. No fracture or osteochondral lesion. Joint spaces are normal with no e rosions. No joint effusion/synovitis. Soft tissues are unremarkable. IMPRESSION: 1. No acute osseous abnormality. Reviewed, dictated and finalized at location F.
--- NOTE | ~2023-06-06 | XR_ITS ---
EXAMINATION: XR hip BI 2V w AP pelvis DATE: 06/06/2023 16:10 INDICATION: Bilateral hip pain TECHNIQUE: AP view the pelvis and two views of each hip were obtained. COMPARISON: None. FINDINGS: Bone alignment is normal. There is no fracture. There is a bone island in the right iliac w ing. IMPRESSION: 1. No acute osseous abnormality. Reviewed, dictated and finalized at location F.
[2023-06-06 16:26] LABS: Basophils Percent Auto 0.3 % (0.2-1.2); Eosinophils Absolute Auto 0.1 K/mm3 (0-0.3); Eosinophils Percent Auto 1.2 % (0-4.4); Hematocrit 45.4 % (37.0-47.0); Hemoglobin 14.7 g/dL (12.0-15.0); Immature Granulocyte Absolute 0.04 K/mm3 (0.00-0.031); Immature Granulocyte Percent A 0.4 % (0-0.5); Lymphocytes Absolute Auto 1.73 K/mm3 (0.9-3.2); Lymphocytes Percent Auto 16.3 % (18.3-44.2); Mean Corpuscular HGB Conc 32.4 g/dl (32-36); Mean Corpuscular Hemoglobin 29.5 pg (26-34); Mean Platelet Volume 9.7 fl (7.4-10.4); Monocytes Absolute Auto 0.5 K/mm3 (0.1-0.6); Monocytes Percent Auto 4.5 % (2.6-8.5); Neutrophils Absolute Auto 8.2 K/mm3 (1.3-6.7); Neutrophils Percent Auto 77.3 % (45.5-73.1); Platelet Count Result 238 k/mm3 (150-375); Red Blood Count 4.99 M/mm3 (4.2-5.4); Red Cell Distribution Width 13.8 % (11.5-14.5); White Blood Count 10.6 K/mm3 (4.5-10.0)
[2023-06-06 16:40] LABS: Alanine Aminotransferase 14 U/L (6-35); Albumin Level 4.2 g/dL (3.5-5.1); Alkaline Phosphatase 70 U/L (38-126); Anion Gap 3 mmol/L (8-16); Aspartate Amino Transferase 19 U/L (14-36); Bilirubin,Total 0.8 mg/dL (0.2-1.3); Blood Urea Nitrogen 12 mg/dL (7-17); CRP < 0.5 mg/dL (<1.0); Calcium 8.9 mg/dL (8.4-10.2); Carbon Dioxide 32 mmol/L (22-30); Chloride 102 mmol/L (98-107); Estimated Glomerular Filt Rate > 60; Glucose 78 mg/dL (65-110); Potassium 3.6 mmol/L (3.4-5.0); Sodium 137 mmol/L (137-145); Uric Acid 4.9 mg/dL (2.5-7.5)
[2023-06-06 16:45] LABS: Complement C3 82 mg/dL (88-165); Rheumatoid Factor < 12.0 IU/ML (<12)
[2023-06-06 17:55] LABS: Vitamin D 25 Hydroxy 28.6 ng/mL
[2023-06-06 17:58] LABS: Hepatitis B Surface Antigen Negative (Negative)
[2023-06-06 19:12] LABS: Hepatitis C Virus Antibody Negative (Negative)
[2023-06-06 19:57] LABS: Erythrocyte Sedimentation Rate 5 mm/hr (0-20)
[2023-06-06 20:46] LABS: Hepatitis B Surface Anti Res Negative
[2023-06-10 11:48] LABS: Anti Cyclic Citrullinated Pept <16 Units (<20)
== END 2023-06-06 15:38 | disposition home or self-care (01) ==
PROVIDERS: PCP Physician Assistant; Visit Provider Internal Medicine
DX: M19.90 Unspecified osteoarthritis, unspecified site (principal); M79.7 Fibromyalgia; R76.8 Other specified abnormal immunological findings in serum; Z71.89 Other specified counseling; Z79.899 Other long term (current) drug therapy; M06.041 Rheumatoid arthritis without rheumatoid factor, right hand; M06.042 Rheumatoid arthritis without rheumatoid factor, left hand; M47.896 Other spondylosis, lumbar region
CPT/HCPCS: 36415; 72110; 73130; 73521; 73562; 73620; 80053; 82306; 84550; 85025; 85652; 86140; 86160; 86200; 86430; 86706; 86803; 87340

== ENCOUNTER 2023-07-28 10:46 | Outpatient (CLI) | payer OTHER, SELFPAY ==
[2023-07-28 11:18] LABS: Hematocrit 40.8 % (37.0-47.0); Hemoglobin 12.9 g/dL (12.0-15.0); Mean Corpuscular HGB Conc 31.6 g/dl (32-36); Mean Corpuscular Hemoglobin 28.8 pg (26-34); Mean Corpuscular Volume 91.1 fl (80-100); Mean Platelet Volume 9.9 fl (7.4-10.4); Platelet Count Result 191 k/mm3 (150-375); Red Blood Count 4.48 M/mm3 (4.2-5.4); Red Cell Distribution Width 13.8 % (11.5-14.5); White Blood Count 3.5 K/mm3 (4.5-10.0)
[2023-07-28 11:36] LABS: Alanine Aminotransferase 14 U/L (6-35); Albumin Level 3.6 g/dL (3.5-5.1); Alkaline Phosphatase 91 U/L (38-126); Anion Gap 4 mmol/L (8-16); Aspartate Amino Transferase 21 U/L (14-36); Bilirubin,Total 0.6 mg/dL (0.2-1.3); Blood Urea Nitrogen 7 mg/dL (7-17); CRP < 0.5 mg/dL (<1.0); Calcium 8.6 mg/dL (8.4-10.2); Carbon Dioxide 23 mmol/L (22-30); Chloride 109 mmol/L (98-107); Creatine Kinase 95 U/L (30-135); Estimated Glomerular Filt Rate > 60; Glucose 93 mg/dL (65-110); Potassium 3.8 mmol/L (3.4-5.0); Sodium 136 mmol/L (137-145); Uric Acid 4.1 mg/dL (2.5-7.5)
[2023-07-28 11:37] LABS: Appearance Urine Clear (Clear); Bilirubin Urine Negative (Negative); Blood Urine Negative (Negative); Color Urine Yellow (Yellow); Glucose Urine UA Negative (Negative); Ketones Urine Negative (Negative); Leukocyte Esterase Ur Negative LEU/UL (Negative); Nitrate Urine Negative (Negative); Protein Urine Negative (Negative); Specific Grav Ur 1.008 (1.001-1.035); Urobilinogen Urine 0.2 mg/dL (<2.0); pH Urine 5.5 (5.0-9.0)
[2023-07-28 11:38] LABS: Add Urine Microscopic? NO
[2023-07-28 11:44] LABS: Complement C3 75 mg/dL (88-165)
[2023-07-28 12:47] LABS: Erythrocyte Sedimentation Rate 3 mm/hr (0-20)
[2023-07-30 15:13] LABS: NIL 0.01 IU/mL; Quantiferon TB Plus, 1T NEGATIVE (NEGATIVE)
[2023-08-02 05:17] LABS: Aldolase 4.1 U/L (<=8.1)
[2023-08-02 20:37] LABS: Lupus dRVVT Screen 36 sec (<=45); PTT-LA Screen 33 sec (<=40)
[2023-08-03 06:37] LABS: Angiotensin Converting Enzyme 51 U/L (9-67)
== END 2023-07-28 10:47 | disposition home or self-care (01) ==
PROVIDERS: PCP Physician Assistant; Visit Provider Internal Medicine
DX: M06.09 Rheumatoid arthritis without rheumatoid factor, multiple sites (principal)
CPT/HCPCS: 36415; 80053; 81003; 82085; 82164; 82550; 84550; 85027; 85613; 85652; 85730; 86140; 86160; 86480

== ENCOUNTER 2023-12-04 12:34 | Outpatient (CLI) | payer OTHER, SELFPAY | END 2023-12-04 12:35 | disposition home or self-care (01) | LOC: ANHAUDIO 12:35 | PROVIDERS: PCP Physician Assistant; Visit Provider Otolaryngology | DX: H90.6 Mixed conductive and sensorineural hearing loss, bilateral (principal); J38.1 Polyp of vocal cord and larynx; K21.9 Gastro-esophageal reflux disease without esophagitis; E03.4 Atrophy of thyroid (acquired) | CPT/HCPCS: 92557; 92567 ==

== ENCOUNTER 2024-02-11 15:49 | Outpatient (CLI) | payer OTHER, SELFPAY ==
--- NOTE | ~2024-02-11 | US_ITS ---
EXAMINATION: US thyroid DATE: 02/11/2024 16:33 INDICATION: Atrophy of thyroid (acquired). TECHNIQUE: Multiple ultrasound images of the thyroid were obtained. COMPARISON: Ultrasound 11/22/2021, neck CT 05/29/2022 FINDINGS: The right thyroid lobe is absent. The left thyroid lobe measures 4.6 x 1.8 x 2.0 cm. The left thyroi d lobe demonstrates increased vascularity. In the left thyroid lobe, there is a 10 mm solid, isoechoi c, wider than tall nodule with ill-defined margin without echogenic foci (TI-RADS TR3). IMPRESSION: 1. Small left thyroid nodule, likely not clinically significant. No follow-up is needed. 2. Absent right thyroid lobe. Reviewed, dictated and finalized at location A. IMPRESSION: 1. Small left thyroid nodule, likely not clinically significant. No follow-up i s needed. 2. Absent right thyroid lobe.
== END 2024-02-11 15:50 | disposition home or self-care (01) ==
PROVIDERS: PCP Physician Assistant; Visit Provider Otolaryngology
DX: E03.4 Atrophy of thyroid (acquired) (principal); K21.9 Gastro-esophageal reflux disease without esophagitis; J38.1 Polyp of vocal cord and larynx; E04.1 Nontoxic single thyroid nodule
CPT/HCPCS: 76536

== ENCOUNTER 2024-05-21 12:07 | Emergency (ER) | payer OTHER, SELFPAY ==
--- NOTE | ~2024-05-21 | XR_ITS ---
EXAMINATION: XR chest 2V DATE: 05/21/2024 13:08 INDICATION: Chest pain. TECHNIQUE: Frontal and lateral views of the chest were obtained. COMPARISON: Chest 2 views 05/06/2019 FINDINGS: There is no pneumonia, pleural effusion, or pneumothorax. The heart size is normal. IMPRESSION: 1. No acute cardiopulmonary disease. Reviewed, dictated and finalized at location A.
--- NOTE | 2024-05-21 12:08 | ECG_ITS ---
Test Date: 2024-05-21 12:21:23 Measurements Intervals Loda Rate: 70 P: 48 TX: 146 QRS: 31 QRSD: 86 T: 76 QT: 418 QTc: 454 Interpretive Statements SINUS RHYTHM NONSPECIFIC T-WAVE ABNORMALITY BORDERLINE ECG No previous ECG available for comparison Electronically Signed On 05-21-2024 12:40:59 CDT by Aguila Clark M.D.
--- NOTE | 2024-05-21 12:12 | ED.CHESTPAIN ---
HPI - Chest Pain General Chief Complaint: Chest Pain Stated Complaint: chest pain Time Seen by Provider: 05/21/24 12:11 Source: patient History of Present Illness HPI narrative: patient is 48 years old white female drove herself to the emergency room complaining of severe sharp stabbing pain at the right chest 4 weeks. Nothing make it worse, smoke marijuana makes better. History of fibromyalgia, last flare up with similar symptom half month ago. Patient on muscle relaxant without any improvement in She denies any fever chills, nausea vomiting trouble breathing. Patient reports a lot of stress and anxiety lately. History of COPD, depression, anxiety multiple Related Data Home Medications Medication Instructions Recorded Confirmed albuterol sulfate 90 mcg/actuation 2 inh inhalation DIRECTED 06/13/21 08/01/23 aerosol inhaler budesonide-formoterol HFA 80 1 inh inhalation DAILY 06/13/21 08/01/23 mcg-4.5 mcg/actuation aerosol inhaler (Symbicort) cetirizine 10 mg tablet 10 mg PO DAILY 06/13/21 08/01/23 fluticasone propionate 50 50 mcg intranasal DIRECTED 06/13/21 08/01/23 mcg/actuation nasal spray,suspension gabapentin 300 mg capsule 300 mg PO DAILY 10/30/22 08/01/23 ropinirole 0.5 mg tablet 0.5 mg PO DAILY 12/04/22 08/01/23 bupropion HCl 150 mg 24 hr tablet, 150 mg PO QAM 08/01/23 08/01/23 extended release (Wellbutrin XL) Allergies Allergy/AdvReac Type Severity Reaction Status Date / Time amoxicillin AdvReac Unknown Verified 05/21/24 12:22 Review of Systems Review of Systems: All systems reviewed & are unremarkable except as noted in HPI and below PMFSH Past Medical History Medical History GEOVANNY positive Bilateral hand pain Dysphagia Fibromyalgia Lupus Polyarthralgia Post hysterectomy menopause Seronegative rheumatoid arthritis of multiple sites Tobacco use Surgical History Surgical History S/P appy Family History Family History Other Asthma Diabetes mellitus Hypertension Social History Social History Smoking status: Current every day smoker Tobacco type: cigarettes Alcohol intake: never Substance use: current Substance use type: marijuana Other substance usage details: for sleep Do You Feel Safe in your Home?: Yes Lack of Transportation: No Lack of Food: Never True Current Housing: I Have Housing Concerned About Future Housing: No Difficulty Paying Gas/Electric Bills: YES Difficulty Paying for Meds: No Currently Unemployed: No Education: High School Diploma/GED Difficulty w/ Childcare or Family Care: No Living arrangements: with family Spiritual care concerns: No Exam Narrative: General appearance: Well-developed, well-nourished, anxious, crying Skin: Normal color Head: Normocephalic, nontraumatic Eyes: Clear conjunctiva ENT: Oropharynx normal, ears normal, nose normal Neck: Supple, nontender Chest and respiratory: Airway patent, no respiratory distress, no accessory muscle use Severe diffuse tenderness right chest and right breast, no bruises, no swelling, no mass, no lymphadenopathy, no rash Heart: Regular rate/rhythm Abdomen: Soft, nontender, no organomegaly, quiet bowel sounds Vascular: Normal peripheral pulses, normal capillary refill. 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
[2024-05-21 12:14] VITALS: BP 129/82; PULSE 85; RESP 13; TEMP 36.3; O2SAT 99
[2024-05-21 12:23] VITALS: O2SAT 99
[2024-05-21 12:32] LABS: Basophils Percent Auto 0.5 % (0.2-1.2); Eosinophils Absolute Auto 0.3 K/mm3 (0-0.3); Eosinophils Percent Auto 3.7 % (0-4.4); Hemoglobin 15.4 g/dL (12.0-15.0); Immature Granulocyte Absolute 0.02 K/mm3 (0.00-0.031); Immature Granulocyte Percent A 0.3 % (0-0.5); Lymphocytes Absolute Auto 1.79 K/mm3 (0.9-3.2); Lymphocytes Percent Auto 23.6 % (18.3-44.2); Mean Corpuscular HGB Conc 32.8 g/dl (32-36); Mean Corpuscular Hemoglobin 29.8 pg (26-34); Mean Corpuscular Volume 90.9 fl (80-100); Mean Platelet Volume 9.3 fl (7.4-10.4); Monocytes Absolute Auto 0.5 K/mm3 (0.1-0.6); Monocytes Percent Auto 6.2 % (2.6-8.5); Neutrophils Percent Auto 65.7 % (45.5-73.1); Platelet Count Result 244 k/mm3 (150-375); Red Blood Count 5.17 M/mm3 (4.2-5.4); Red Cell Distribution Width 13.7 % (11.5-14.5); White Blood Count 7.6 K/mm3 (4.5-10.0)
[2024-05-21] MEDS: ONDANSETRON INJ 4 MG/2 ML VIAL IV PUSH (12:41)
[2024-05-21 12:46] LABS: INR 0.9; Prothrombin Time 12.9 Seconds (11.1-14.7)
[2024-05-21] MEDS: HYDROmorphone HCL INJ (*CRX) 1 MG/ML SYR 0.5 MG IV PUSH (12:46)
[2024-05-21 12:47] LABS: Partial Thromboplastin Time 25.8 Seconds (22.3-36.8)
[2024-05-21 12:53] LABS: Alanine Aminotransferase 13 U/L (6-35); Albumin Level 4.2 g/dL (3.5-5.1); Alkaline Phosphatase 95 U/L (38-126); Anion Gap 6 mmol/L (4-12); Aspartate Amino Transferase 21 U/L (14-36); Bilirubin,Total 0.6 mg/dL (0.2-1.3); Blood Urea Nitrogen 7 mg/dL (7-17); Calcium 9.6 mg/dL (8.4-10.2); Carbon Dioxide 29 mmol/L (22-30); Chloride 104 mmol/L (98-107); Estimated CRCL calculation 95 ml/min; Estimated Glomerular Filt Rate > 60; Glucose 109 mg/dL (65-110); Lipase 50 U/L (23-300); Potassium 4.2 mmol/L (3.4-5.0); Sodium 139 mmol/L (137-145)
[2024-05-21 12:56] LABS: D Dimer 0.39 ug/mL (<0.48)
[2024-05-21 13:05] LABS: Troponin I < 0.012 ng/mL (0.000-0.034)
[2024-05-21] MEDS: KETOROLAC 30 MG/ML VIAL (*BKC) IV PUSH (13:57)
== END 2024-05-21 14:00 | disposition home or self-care (01) ==
PROVIDERS: Emergency Provider Emergency Medicine; PCP Physician Assistant
DX: R07.89 Other chest pain (principal); M32.9 Systemic lupus erythematosus, unspecified; F17.210 Nicotine dependence, cigarettes, uncomplicated; M79.7 Fibromyalgia
CPT/HCPCS: 36415; 71046; 80053; 83690; 84484; 85025; 85380; 85610; 85730; 93005; 96374; 96375; 99284; J1171; J1885; J2405

== ENCOUNTER 2024-07-15 12:51 | Outpatient (CLI) | payer OTHER, SELFPAY ==
--- NOTE | ~2024-07-15 | MM_ITS ---
EXAMINATION: MM diagnostic demetri BI w je HISTORY: Breast pain TECHNIQUE: Additional 3-D tomosynthesis images of the breasts were performed and synthetic 2-D images were generated. CAD analysis was submitted and interpreted. COMPARISON: Comparison to multiple prior studies sequentially, with oldest reviewed study dated 04/25. BREAST PARENCHYMAL COMPOSITION: Not dense: There are scattered areas of fibroglandular density. FINDINGS: The breasts are stable. There are no suspicious masses, calcifications or architectural dis tortion in either breast to suggest malignancy. IMPRESSION: 1. No evidence for malignancy in either breast. 2. Routine yearly screening mammogram and regular clinical breast examination are recommended. BI-RADS Category 1: Negative Reviewed, dictated and finalized at location B. TIC TECHNOLOGIST IMPRESSION: 1. No evidence for malignancy in either breast. 2. Routine yearly screening mammogram and regular clinical breast examination a re recommended. BI-RADS Category 1: Negative
== END 2024-07-15 12:52 | disposition home or self-care (01) ==
PROVIDERS: PCP Physician Assistant; Visit Provider Physician Assistant
DX: N64.4 Mastodynia (principal)
CPT/HCPCS: 77062; 77066; G0279

== ENCOUNTER 2024-07-20 07:55 | Outpatient (CLI) | payer OTHER, SELFPAY ==
--- NOTE | ~2024-07-20 | US_ITS ---
EXAMINATION: US aorta DATE: 07/20/2024 08:32 INDICATION: Abdominal aortic aneurysm without rupture TECHNIQUE: Grayscale, color Doppler, and pulsed Doppler images of the aorta and common iliac arteries were obtained. COMPARISON: None. FINDINGS: The proximal aorta measures 2.0 cm. The mid aorta measures 1.8 cm. The distal aorta measures 1.8 cm. The right common iliac artery measures 1.1 cm. The left common iliac artery measures 1.1 cm. IMPRESSION: 1. Normal caliber abdominal aorta. No aneurysm. Reviewed, dictated and finalized at location A. L INSPECTOR TRUCK TRAILER
== END 2024-07-20 07:56 | disposition home or self-care (01) ==
PROVIDERS: PCP Physician Assistant; Visit Provider Physician Assistant
DX: I71.40 Abdominal aortic aneurysm, without rupture, unspecified (principal)
CPT/HCPCS: 76775